=== PATIENT | female | born 1940 | race American Indian/Alaskan Native ===

== ENCOUNTER 2017-02-27 17:26 | Inpatient (IN) | payer MEDICARE, OTHER ==
[2017-02-27 17:37] VITALS: BMI 29.9
[2017-02-27] MEDS ORDERED: Iohexol 240 (50 ml) PO STA (18:36)
[2017-02-27] MEDS ORDERED: Sodium Chloride 0.9% 500 ML IV ONE ×2 (18:36→18:55)
[2017-02-27] MEDS ORDERED: Iohexol 240 (50 ml) ONE (18:55)
[2017-02-27 19:05] LABS: BASO # 0.1 K/uL (0.0-0.2); BASO % 0.6 % (0.0-2.0); EOS # 0.1 K/uL (0.0-0.7); EOS % 0.9 % (0.0-4.0); HEMOGLOBIN 10.8 g/dL (11.0-16.0); LYMPH # 2.8 K/uL (1.0-4.3); LYMPH % 17.9 % (20.0-40.0); MEAN CELL VOLUME 82.6 fL (81.0-99.0); MEAN CORPUSCULAR HEMOGLOBIN 26.1 pg (27.0-31.0); MEAN CORPUSCULAR HGB CONC 31.6 g/dL (33.0-37.0); MEAN PLATELET VOLUME 7.2 fL (7.2-11.7); MONO # 0.7 K/uL (0.0-0.8); MONO % 4.2 % (0.0-10.0); NEUT # 12.1 K/uL (1.8-7.0); NEUT % 76.4 % (50.0-75.0); RBC 4.15 Mil/uL (3.80-5.20); RED CELL DISTRIBUTION WIDTH 19.2 % (11.5-14.5); WHITE BLOOD COUNT 15.9 K/uL (4.8-10.8)
[2017-02-27 19:12] LABS: INR 1.2; PROTHROMBIN TIME 13.6 SECONDS (9.7-12.2)
[2017-02-27 19:17] LABS: ALBUMIN 3.8 g/dL (3.5-5.0)
[2017-02-27 19:19] LABS: GFR AFRICAN-AMERICAN > 60; GFR NON-AFRICAN AMERICAN > 60; SQUAMOUS EPITHIAL 13 /hpf (0-5); URINE BACTERIA RARE (<OCC); URINE BILIRUBIN NEGATIVE (NEGATIVE); URINE BLOOD NEGATIVE (NEGATIVE); URINE CLARITY Hazy (Clear); URINE COLOR Yellow (YELLOW); URINE GLUCOSE (UA) NORMAL (Normal); URINE NITRATE NEGATIVE (NEGATIVE); URINE PROTEIN NEGATIVE (NEGATIVE); URINE UROBILINOGEN NORMAL mg/dL (0.2-1.0)
[2017-02-27 19:20] LABS: ALT/SGPT 21 U/L (9-52); AST/SGOT 41 U/L (14-36); BLOOD UREA NITROGEN 16 mg/dL (7-17); CALCIUM 9.1 mg/dl (8.6-10.4); LIPASE 81 U/L (23-300)
[2017-02-27] MEDS ORDERED: Iodixanol 320 MG/ML 100 ML BOTTLE IV ONE (20:02)
[2017-02-27 20:04] LABS: URINE LEUKOCYTE ESTERASE 2+ Leu/uL (Negative)
--- NOTE | 2017-02-27 21:15 | CT ---
EXAM: CT Abdomen and Pelvis With Intravenous Contrast CLINICAL HISTORY: 76 years old, female; Pain; Abdominal pain; Flank; Left lower quadrant (llq); Additional info: Llq pain TECHNIQUE: Axial computed tomography images of the abdomen and pelvis with intravenous contrast. This CT exam was performed using one or more of the following dose reduction techniques: automated exposure control, adjustment of the mA and/or kV according to patient size, and/or use of iterative reconstruction technique. Coronal and sagittal reformatted images were created and reviewed. CONTRAST: 100 mL of OMNIPAQUE 350 administered intravenously. EXAM DATE/TIME: 02/27/2017 7:32 PM COMPARISON: There are no prior studies for comparison. FINDINGS: Lower thorax: Heart size is normal. There is a small hiatal hernia. There is reflux of oral contrast into the distal esophagus. There is minimal atelectasis and scarring at the lung bases ABDOMEN: Liver: There is fatty infiltration of the liver. There is a heterogeneously enhancing lesion in the dome of the liver on the right, approximately 2.3 x 2.2 cm.. Gallbladder and bile ducts: unremarkable Pancreas: unremarkable Spleen: unremarkable Adrenals: There is mild adrenal thickening bilaterally. Kidneys and ureters: There is a left renal cyst. There is minimal right renal scarring. Kidneys and ureters are otherwise unremarkable. Stomach and bowel: Stomach is incompletely distended. There is mild prominence of the antral and duodenal [place]. There is mild transverse duodenal and proximal jejunal wall and fold thickening. Duodenum and proximal jejunum are mildly dilated. Dilatation decreases distally. Small bowel is incompletely opacified with contrast. Terminal ileum is distended with fluid.Appendix is not visualized. There is no pericecal inflammation. There is moderate stool in the colon. There is sigmoid diverticulosis. There is a long segment sigmoid lesion with wall thickening and inflammation in the adjacent fat. Appendix: See stomach and bowel PELVIS: Bladder: Bladder is partially distended. Reproductive: Uterus is mildly prominent for patient's age. There are scattered uterine calcifications. Right adnexa is unremarkable. Left adnexa is difficult to evaluate. ABDOMEN and PELVIS: Intraperitoneal space: There is a small amount of fluid in the left colic gutter and pelvis. There is no free air. Bones/joints: There are degenerative changes in the osseus structures. Soft tissues: There is a small fat containing umbilical hernia. There is a cyst containing left paraumbilical ventral hernia. Vasculature: There are vascular calcifications. Lymph nodes: There is shotty para-aortic adenopathy. IMPRESSION: Diverticulosis with probable sigmoid diverticulitis, underlying neoplasm is difficult to exclude, followup advised; enteritis; possible hepatic hemangioma; possible fibroid uterus Additional findings as described above.
[2017-02-27] MEDS ORDERED: Vancomycin 125 MG/5 ML SOLN (ORAL/RECTAL) PO STA (22:29)
[2017-02-27] MEDS ORDERED: metroNIDAZOLE IV 500 mg/100 ml 500 MG/100 ML BAG IVPB STA (22:31)
--- NOTE | 2017-02-27 22:44 | C.PDOC ---
Time Seen by Provider: 02/27/17 18:23 Chief Complaint (Nursing): Abdominal Pain History Per: Patient Onset/Duration Of Symptoms: Days, Persistent Current Symptoms Are (Timing): Still Present Severity: Moderate Location Of Pain/Discomfort: LLQ Quality Of Discomfort: "Pain" Alleviating Factors: None Additional History Per: Prior Records Past Medical History Reviewed: Historical Data, Nursing Documentation, Vital Signs Vital Signs: Last Vital Signs Temp 98.8 F 02/27/17 21:05 Pulse 70 02/27/17 21:05 Resp 18 02/27/17 21:05 BP 129/68 02/27/17 21:05 Pulse Ox 97 02/27/17 21:05 - Medical History PMH: Arthritis, Colonic Polyps, Diverticulitis, HTN, Hypercholesterolemia Surgical History: Appendectomy Other Surgeries: Drainage of diverticulitis associated abscess Family History: States: Unknown Family Hx - Social History Hx Alcohol Use: No Hx Substance Use: No - Immunization History Hx Tetanus Toxoid Vaccination: No Hx Influenza Vaccination: No (Deferred to MD) Hx Pneumococcal Vaccination: No (Deferred to MD) Review Of Systems Except As Marked, All Systems Reviewed And Found Negative. Constitutional: Negative for: Fever Cardiovascular: Negative for: Chest Pain Respiratory: Negative for: Shortness of Breath Gastrointestinal: Positive for: Abdominal Pain. Negative for: Vomiting, Hematochezia Genitourinary: Negative for: Dysuria Musculoskeletal: Negative for: Neck Pain, Back Pain Skin: Negative for: Rash Neurological: Negative for: Weakness, Numbness, Seizures, Altered Mental Status Physical Exam - Physical Exam Appears: Non-toxic, No Acute Distress Skin: Normal Color, Warm, Dry, No Rash Head: Atraumatic, Normacephalic Eye(s): bilateral: PERRL, EOMI Neck: Normal ROM, Supple Cardiovascular: Rhythm Regular Respiratory: Normal Breath Sounds, No Accessory Muscle Use Gastrointestinal/Abdominal: Soft, Tenderness (LLQ) Back: No CVA Tenderness Extremity: Normal ROM Neurological/Psych: Oriented x3, Normal Motor, Normal Sensation ED Course And Treatment - Laboratory Results Result Diagrams: 02/27/17 18:58 02/27/17 18:58 Lab Interpretation: Abnormal Interpretation Of Abnormal: Leukocytosis O2 Sat by Pulse Oximetry: 97 Pulse Ox Interpretation: Normal - CT Scan/US CT abd/pelv Other Rad Studies (CT/US): Read By Radiologist, Radiology Report Reviewed CT/US Interpretation: IMPRESSION: Diverticulosis with probable sigmoid diverticulitis, underlying. neoplasm is difficult to exclude, followup advised ; enteritis; possible hepatic. hemangioma; possible fibroid uterus. . . Additional findings as described above. - Physician Consult Information Physician Contacted: Marion Lira (GI) Outcome Of Conversation: He wants pt admitted under Dr. Liang's service and receive PO Vancomycin and IV Flagyl. Progress - Interventions Interventions:: Observation, Intravenous fluid - Medications Administered Intravenous: Opiate - Data Reviewed Data Reviewed: Lab, Diagnostic imaging, Old records - Patient Status Patient status: Partially improved - Continuity of Care Discussed patient case with:: Patient, ED Nurse, PMD Discussed pt. case with clinical application consultant/specialty: Gastroenterology - Patient Plan Patient Plan: Admission Disposition Discussed With : Heraclio Liang Comment: He accepted pt on his service. Doctor Will See Patient In The: Hospital Counseled Patient/Family Regarding: Studies Performed, Diagnosis - Disposition Disposition: HOSPITALIZED Disposition Time: 22:45 Condition: FAIR - Clinical Impression Clinical Impression: Sigmoid diverticulitis
[2017-02-27] MEDS ORDERED: metroNIDAZOLE IV 500 mg/100 ml 500 MG/100 ML BAG ONE (22:59)
[2017-02-28] MEDS ORDERED: metroNIDAZOLE IV 500 mg/100 ml 500 MG/100 ML BAG ONE ×2 (06:05→14:10)
[2017-02-28] MEDS: metroNIDAZOLE IV 500 mg/100 ml 500 MG/100 ML BAG IVPB SCH ×3 (06:11→21:04)
[2017-02-28] MEDS ORDERED: Dextrose 5%/0.45% NS 1,000 ML IV ONE (09:30)
[2017-02-28] MEDS: Dextrose 5%/0.45% NS 1,000 ML IV SCH (09:31)
[2017-02-28] MEDS ORDERED: Enoxaparin 40 mg Syringe ONE (09:33)
[2017-02-28] MEDS ORDERED: cefTRIAXone IV 1 gm in Dextros 50 ML IVPB ONE (09:33)
[2017-02-28] MEDS: Enoxaparin 40 mg Syringe SC SCH (09:36)
--- NOTE | 2017-02-28 21:24 | CP.PCM.HP ---
History of Present Illness - History of Present Illness History of Present Illness: Cheif complain: LLQ abdominal pain HPI: Elderly AA female well known to me with H/O DM, HTN, Diverticulitis of colon, she was recently discharged from [facility], after few days of no complains, she developed acute LLQ pain, not associated with any urinary symptoms. Present on Admission - Present on Admission Any Indicators Present on Admission: Yes Review of Systems - Review of Systems Systems not reviewed;Unavailable: Acuity of Condition - Constitutional Constitutional: Fatigue, Lethargy, Malaise - EENT Eyes: absent: As Per HPI, Blind Spots, Blurred Vision, Change in Vision, Decreased Night Vision, Diplopia, Discharge, Dry Eye, Exophthalmos, Floaters, Irritation, Itchy Eyes, Loss of Peripheral Vision, Pain, Photophobia, Requires Corrective Lenses, Sees Flashes, Spots in Vision, Tunnel Vision, Other Visual Disturbances, Loss of Vision, Other Ears: absent: As Per HPI, Decreased Hearing, Ear Discharge, Ear Pain, Tinnitus, Abnormal Hearing, Disequilibrium, Dizziness, Other Nose/Mouth/Throat: absent: As Per HPI, Epistaxis, Nasal Congestion, Nasal Discharge, Nasal Obstruction, Nasal Trauma, Nose Pain, Post Nasal Drip, Sinus Pain, Sinus Pressure, Bleeding Gums, Change in Voice, Dental Pain, Dry Mouth, Dysphagia, Halitosis, Hoarsness, Lip Swelling, Mouth Lesions, Mouth Pain, Odynophagia, Sore Throat, Throat Swelling, Tongue Swelling, Facial Pain, Neck Pain, Neck Mass, Other - Cardiovascular Cardiovascular: absent: As Per HPI, Acrocyanosis, Chest Pain, Chest Pain at Rest , Chest Pain with Activity, Claudication, Diaphoresis, Dyspnea, Dyspnea on Exertion, Edema, Irregular Heart Rhythm, Pain Radiating to Arm/Neck/Jaw, Leg Edema, Leg Ulcers, Lightheadedness, Orthopnea, Palpitations, Paroxysmal Nocturnal Dyspnea, Pedal Edema, Radiating Pain, Rapid Heart Rate, Slow Heart Rate, Syncope, Other - Respiratory Respiratory: absent: As Per HPI, Cough, Dyspnea, Hemoptysis, Dyspnea on Exertion , Wheezing, Snoring, Stridor, Pain on Inspiration, Chest Congestion, Excessive Mucous Production, Change in Mucous Color, Pain with Coughing, Other - Gastrointestinal Gastrointestinal: Abdominal Pain. absent: As Per HPI, Belching, Bloating, Change in Bowel Habits, Change in Stool Character, Coffee Ground Emesis, Constipation, Cramping, Diarrhea, Dyspepsia, Dysphagia, Early Satiety, Excessive Flatus, Fecal Incontinence, Heartburn, Hematemesis, Hematochezia, Loose Stools, Melena, Nausea, Odynophagia, Temesmus, Vomiting, Other - Genitourinary Genitourinary: absent: As Per HPI, Change in Urinary Stream, Difficulty Urinating, Dysuria, Flank Pain, Hematuria, Pyuria, Nocturia, Urinary Incontinence, Urinary Frequency, Urinary Hesitance, Urinary Urgency, Voiding Freq/Small Amts, Freq UTI, Hx Renal/Bladder Calculi, Hx /Renal Surgery, Bladder Distension, Other Past Patient History - Past Medical History & Family History Past Medical History?: Yes - Past Social History Smoking Status: Never Smoked - CARDIAC Hx Hypercholesterolemia: Yes Hx Hypertension: Yes - PULMONARY Hx Respiratory Disorders: No - NEUROLOGICAL Hx Neurological Disorder: No - HEENT Hx HEENT Problems: No - RENAL Hx Chronic Kidney Disease: No - ENDOCRINE/METABOLIC Hx Endocrine Disorders: No - HEMATOLOGICAL/ONCOLOGICAL Hx Blood Disorders: No Hx Blood Transfusions: No - INTEGUMENTARY Hx Dermatological Problems: No - MUSCULOSKELETAL/RHEUMATOLOGICAL Hx Arthritis: Yes Hx Falls: No - GASTROINTESTINAL Hx Diverticulitis: Yes - GENITOURINARY/GYNECOLOGICAL Hx Genitourinary Disorders: No - PSYCHIATRIC Hx Substance Use: No - SURGICAL HISTORY Hx Appendectomy: Yes - ANESTHESIA Hx Anesthesia: Yes Hx Anesthesia Reactions: No Hx Malignant Hyperthermia: No Meds Allergies/Adverse Reactions: Allergies Allergy/AdvReac Type Severity Reaction Status Date / Time No Known Allergies Allergy Verified 02/27/17 17:34 Physical Exam - Constitutional Appears: No Acute Distress - Head Exam Head Exam: ATRAUMATIC, NORMAL INSPECTION, NORMOCEPHALIC - Eye Exam Eye Exam: EOMI, Normal appearance, PERRL Pupil Exam: NORMAL ACCOMODATION, PERRL - ENT Exam ENT Exam: Mucous Membranes Moist, Normal Exam - Respiratory Exam Respiratory Exam: Clear to Auscultation Bilateral, NORMAL BREATHING PATTERN - Cardiovascular Exam Cardiovascular Exam: REGULAR RHYTHM - GI/Abdominal Exam GI & Abdominal Exam: Normal Bowel Sounds, Tenderness Additional comments: LLQ - Neurological Exam Neurological exam: Alert, CN II-XII Intact, Normal Gait, Oriented x3, Reflexes Normal Results - Vital Signs Recent Vital Signs: Last Vital Signs Temp 98.2 F 02/28/17 18:08 Pulse 63 02/28/17 18:08 Resp 20 02/28/17 18:08 BP 157/80 H 02/28/17 18:08 Pulse Ox 97 02/28/17 18:08 - Labs Result Diagrams: 02/27/17 18:58 02/27/17 18:58 Labs: Laboratory Results - last 24 hr 02/28/17 11:31 Carcinoembryonic Ag 3.3 H CA 19-9 Antigen < 1.4 CA 125 Antigen 7.1 Assessment & Plan (1) UTI (urinary tract infection) Status: Acute (2) Sigmoid diverticulitis Status: Acute
[2017-03-01] MEDS: metroNIDAZOLE IV 500 mg/100 ml 500 MG/100 ML BAG IVPB SCH ×3 (05:00→21:00)
[2017-03-01] MEDS: Dextrose 5%/0.45% NS 1,000 ML IV SCH (05:30)
[2017-03-01] MEDS: Enoxaparin 40 mg Syringe SC SCH (09:57)
--- NOTE | 2017-03-01 10:14 | CP.PCM.PN ---
Subjective - Date & Time of Evaluation Date of Evaluation: 03/01/17 Time of Evaluation: 08:05 - Subjective Subjective: Pt is seen and evalauted, still c/o LLQ pain, afebrile, no nausea/vomittitng Objective - Vital Signs/Intake and Output Vital Signs (last 24 hours): Temp Pulse Resp BP Pulse Ox 97.4 F L 60 20 137/69 95 03/01/17 08:00 03/01/17 08:00 03/01/17 08:00 03/01/17 08:00 03/01/17 08:00 Intake and Output: 03/01/17 03/01/17 06:59 18:59 Intake Total 400 Balance 400 - Medications Medications: Current Medications Enoxaparin Sodium (Lovenox) 40 mg SC DAILY [facility] Last Admin: 03/01/17 09:57 Dose: 40 mg Metronidazole (Flagyl) 500 mg in 100 mls @ 100 mls/hr IVPB Q8 [facility] Last Admin: 03/01/17 05:00 Dose: 100 mls/hr Ceftriaxone Sodium 1 gm/ (Sodium Chloride) 100 mls @ 100 mls/hr IVPB DAILY [facility] Last Admin: 02/28/17 09:36 Dose: 100 mls/hr Dextrose/Sodium Chloride (Dextrose 5%/0.45% Ns 1000 Ml) 1,000 mls @ 50 mls/hr IV .Q20H [facility] Last Admin: 03/01/17 05:30 Dose: 50 mls/hr Famotidine 40 mg/ Sodium (Chloride) 104 mls @ 208 mls/hr IVPB DAILY [facility] Last Admin: 03/01/17 09:57 Dose: 208 mls/hr Morphine Sulfate (Morphine) 2 mg IVP Q4 PRN PRN Reason: Pain, moderate (4-7) Last Admin: 03/01/17 07:14 Dose: 2 mg Ondansetron HCl (Zofran Inj) 4 mg IVP Q4 PRN PRN Reason: Nausea/Vomiting Last Admin: 02/28/17 09:45 Dose: 4 mg Rosuvastatin Calcium (Crestor) 5 mg PO DIN [facility] - Labs Labs: PT 13.6 SECONDS (9.7-12.2) H 02/27/17 18:58 INR 1.2 02/27/17 18:58 APTT 30 SECONDS (21-34) 02/27/17 18:58 - Constitutional Appears: No Acute Distress - Head Exam Head Exam: ATRAUMATIC, NORMAL INSPECTION, NORMOCEPHALIC - Eye Exam Eye Exam: EOMI, Normal appearance, PERRL Pupil Exam: NORMAL ACCOMODATION, PERRL - Respiratory Exam Respiratory Exam: Clear to Ausculation Bilateral, NORMAL BREATHING PATTERN - Cardiovascular Exam Cardiovascular Exam: REGULAR RHYTHM, +S1, +S2. absent: Murmur - GI/Abdominal Exam GI & Abdominal Exam: Tenderness, Normal Bowel Sounds. absent: Bruit, Distended , Firm, Guarding, Rigid, Soft, Diminished Bowel Sounds, Hernia, Hyperactive Bowel Sounds, Hypoactive Bowel Sounds, Organomegaly, Pulsatile Mass, Rebound, Mass Additional comments: LLQ tenderness Assessment and Plan (1) UTI (urinary tract infection) Status: Acute (2) Sigmoid diverticulitis Status: Acute
[2017-03-01 12:08] LABS: BASO # 0.1 K/uL (0.0-0.2); BASO % 0.8 % (0.0-2.0); EOS # 0.2 K/uL (0.0-0.7); EOS % 3.2 % (0.0-4.0); HEMOGLOBIN 10.1 g/dL (11.0-16.0); LYMPH # 2.6 K/uL (1.0-4.3); LYMPH % 42.5 % (20.0-40.0); MEAN CELL VOLUME 83.2 fL (81.0-99.0); MEAN CORPUSCULAR HGB CONC 32.5 g/dL (33.0-37.0); MEAN PLATELET VOLUME 7.4 fL (7.2-11.7); MONO # 0.4 K/uL (0.0-0.8); MONO % 6.7 % (0.0-10.0); NEUT # 2.9 K/uL (1.8-7.0); NEUT % 46.8 % (50.0-75.0); RBC 3.74 Mil/uL (3.80-5.20); RED CELL DISTRIBUTION WIDTH 18.5 % (11.5-14.5)
[2017-03-01 12:13] LABS: WHITE BLOOD COUNT 6.2 K/uL (4.8-10.8)
[2017-03-01 12:15] LABS: INR 1.2
[2017-03-01 12:37] LABS: ALBUMIN 3.3 g/dL (3.5-5.0)
[2017-03-01 12:40] LABS: AST/SGOT 30 U/L (14-36); GFR AFRICAN-AMERICAN > 60; GFR NON-AFRICAN AMERICAN > 60
[2017-03-01 12:41] LABS: ALB/GLOB RATIO 0.9 (1.0-2.1); ALT/SGPT 21 U/L (9-52); BLOOD UREA NITROGEN 7 mg/dL (7-17); CALCIUM 8.8 mg/dl (8.6-10.4)
[2017-03-01] MEDS: Potassium Chloride 20 mEq ER Tab PO SCH (14:22)
[2017-03-02] MEDS: Dextrose 5%/0.45% NS 1,000 ML IV SCH ×3 (01:22→21:31)
--- NOTE | 2017-03-02 02:25 | CP.PCM.PN ---
Subjective - Date & Time of Evaluation Date of Evaluation: 03/02/17 Time of Evaluation: 21:00 - Subjective Subjective: LESS ABDOMINAL PAIN, NO NAUSEA, ON DIET Objective - Vital Signs/Intake and Output Vital Signs (last 24 hours): Temp Pulse Resp BP Pulse Ox 98.2 F 57 L 20 135/68 96 03/01/17 23:05 03/01/17 23:05 03/01/17 23:05 03/01/17 23:05 03/01/17 23:05 Intake and Output: 03/01/17 03/02/17 18:59 06:59 Intake Total 1130 Balance 1130 - Medications Medications: Current Medications Enoxaparin Sodium (Lovenox) 40 mg SC DAILY [facility] Last Admin: 03/01/17 09:57 Dose: 40 mg Metronidazole (Flagyl) 500 mg in 100 mls @ 100 mls/hr IVPB Q8 [facility] Last Admin: 03/01/17 21:00 Dose: 100 mls/hr Ceftriaxone Sodium 1 gm/ (Sodium Chloride) 100 mls @ 100 mls/hr IVPB DAILY [facility] Last Admin: 03/01/17 11:00 Dose: 100 mls/hr Dextrose/Sodium Chloride (Dextrose 5%/0.45% Ns 1000 Ml) 1,000 mls @ 50 mls/hr IV .Q20H [facility] Last Admin: 03/02/17 01:22 Dose: Not Given Famotidine 40 mg/ Sodium (Chloride) 104 mls @ 208 mls/hr IVPB DAILY [facility] Last Admin: 03/01/17 09:57 Dose: 208 mls/hr Morphine Sulfate (Morphine) 2 mg IVP Q4 PRN PRN Reason: Pain, moderate (4-7) Last Admin: 03/01/17 20:58 Dose: 2 mg Ondansetron HCl (Zofran Inj) 4 mg IVP Q4 PRN PRN Reason: Nausea/Vomiting Last Admin: 02/28/17 09:45 Dose: 4 mg Potassium Chloride (K-Dur 20 Meq Er Tab) 40 meq PO DAILY [facility] Stop: 03/03/17 13:46 Last Admin: 03/01/17 14:22 Dose: 40 meq Rosuvastatin Calcium (Crestor) 5 mg PO DIN [facility] - Labs Labs: 03/01/17 11:55 03/01/17 11:55 PT 14.0 SECONDS (9.7-12.2) H 03/01/17 11:55 INR 1.2 03/01/17 11:55 APTT 34 SECONDS (21-34) 03/01/17 11:55 Assessment and Plan (1) UTI (urinary tract infection) Status: Resolved (2) Sigmoid diverticulitis Status: Ruled-out
[2017-03-02] MEDS: metroNIDAZOLE IV 500 mg/100 ml 500 MG/100 ML BAG IVPB SCH ×3 (05:55→21:29)
[2017-03-02 08:18] LABS: BLOOD UREA NITROGEN 6 mg/dL (7-17); GFR AFRICAN-AMERICAN > 60; GFR NON-AFRICAN AMERICAN > 60
[2017-03-02 08:19] LABS: CALCIUM 8.9 mg/dl (8.6-10.4)
[2017-03-02] MEDS: Potassium Chloride 20 mEq ER Tab PO SCH (10:24)
[2017-03-02] MEDS: Enoxaparin 40 mg Syringe SC SCH (10:25)
[2017-03-03] MEDS: metroNIDAZOLE IV 500 mg/100 ml 500 MG/100 ML BAG IVPB SCH ×3 (05:37→21:45)
[2017-03-03] MEDS: Dextrose 5%/0.45% NS 1,000 ML IV SCH (05:39)
[2017-03-03] MEDS: Enoxaparin 40 mg Syringe SC SCH (11:05)
[2017-03-03] MEDS: Potassium Chloride 20 mEq ER Tab PO SCH (11:05)
--- NOTE | 2017-03-03 21:51 | CP.PCM.PN ---
Subjective - Date & Time of Evaluation Date of Evaluation: 03/03/17 Time of Evaluation: 13:00 - Subjective Subjective: FEELS LLQ PAIN, NUASEA, NO FEVER, SHE HAS NO CHEST PAIN, SEEN BY GI, ON IV ANTIBIOTICS Objective - Vital Signs/Intake and Output Vital Signs (last 24 hours): Temp Pulse Resp BP Pulse Ox 99.2 F 60 20 157/77 H 98 03/03/17 08:23 03/03/17 08:23 03/03/17 08:23 03/03/17 08:23 03/03/17 08:23 Intake and Output: 03/03/17 03/04/17 18:59 06:59 Intake Total 780 Balance 780 - Medications Medications: Current Medications Enoxaparin Sodium (Lovenox) 40 mg SC DAILY [facility] Last Admin: 03/03/17 11:05 Dose: 40 mg Metronidazole (Flagyl) 500 mg in 100 mls @ 100 mls/hr IVPB Q8 [facility] Last Admin: 03/03/17 21:45 Dose: 100 mls/hr Ceftriaxone Sodium 1 gm/ (Sodium Chloride) 100 mls @ 100 mls/hr IVPB DAILY [facility] Last Admin: 03/03/17 11:04 Dose: 100 mls/hr Famotidine 40 mg/ Sodium (Chloride) 104 mls @ 208 mls/hr IVPB DAILY [facility] Last Admin: 03/03/17 11:03 Dose: 208 mls/hr Morphine Sulfate (Morphine) 2 mg IVP Q4 PRN PRN Reason: Pain, moderate (4-7) Last Admin: 03/02/17 22:27 Dose: 2 mg Ondansetron HCl (Zofran Inj) 4 mg IVP Q4 PRN PRN Reason: Nausea/Vomiting Last Admin: 03/02/17 10:29 Dose: 4 mg Rosuvastatin Calcium (Crestor) 5 mg PO DIN [facility] - Labs Labs: 03/01/17 11:55 03/02/17 07:54 PT 14.0 SECONDS (9.7-12.2) H 03/01/17 11:55 INR 1.2 03/01/17 11:55 APTT 34 SECONDS (21-34) 03/01/17 11:55 - Constitutional Appears: Non-toxic, No Acute Distress - Head Exam Head Exam: ATRAUMATIC, NORMAL INSPECTION, NORMOCEPHALIC - Eye Exam Eye Exam: Normal appearance Pupil Exam: NORMAL ACCOMODATION - ENT Exam ENT Exam: Mucous Membranes Moist, Normal Exam - Neck Exam Neck Exam: Normal Inspection - Respiratory Exam Respiratory Exam: Clear to Ausculation Bilateral - Cardiovascular Exam Cardiovascular Exam: REGULAR RHYTHM, +S1, +S2 - GI/Abdominal Exam GI & Abdominal Exam: Soft, Tenderness (LLQ) - Rectal Exam Rectal Exam: NORMAL INSPECTION - Exam Exam: NORMAL INSPECTION Assessment and Plan (1) UTI (urinary tract infection) Status: Acute (2) Sigmoid diverticulitis Assessment & Plan: SHE IS IN PAIN, TO CONTINUE ANTIBIOTICS IVF AND DIET PER GI DR BARGER Status: Acute (3) Hypertension Status: Chronic (4) Dehydration Assessment & Plan: IVF, MONITOR LABS Status: Acute
[2017-03-04] MEDS: metroNIDAZOLE IV 500 mg/100 ml 500 MG/100 ML BAG IVPB SCH ×3 (05:19→21:33)
[2017-03-04] MEDS: Enoxaparin 40 mg Syringe SC SCH (10:02)
[2017-03-04] MEDS: Dextrose 5%/0.45% NS 1,000 ML IV SCH (21:34)
--- NOTE | 2017-03-04 23:33 | CP.PCM.PN ---
Subjective - Date & Time of Evaluation Date of Evaluation: 03/04/17 Time of Evaluation: 20:40 - Subjective Subjective: LESS ABDOMINAL PAIN, NO NAUSEA, ON DIET Objective - Vital Signs/Intake and Output Vital Signs (last 24 hours): Temp Pulse Resp BP Pulse Ox 98.3 F 58 L 20 152/80 H 99 03/04/17 16:00 03/04/17 16:00 03/04/17 16:00 03/04/17 16:00 03/04/17 16:00 Intake and Output: 03/04/17 03/05/17 18:59 06:59 Intake Total 750 Balance 750 - Medications Medications: Current Medications Enoxaparin Sodium (Lovenox) 40 mg SC DAILY [facility] Last Admin: 03/04/17 10:02 Dose: 40 mg Metronidazole (Flagyl) 500 mg in 100 mls @ 100 mls/hr IVPB Q8 [facility] Last Admin: 03/04/17 21:33 Dose: 100 mls/hr Ceftriaxone Sodium 1 gm/ (Sodium Chloride) 100 mls @ 100 mls/hr IVPB DAILY [facility] Last Admin: 03/04/17 10:04 Dose: 100 mls/hr Famotidine 40 mg/ Sodium (Chloride) 104 mls @ 208 mls/hr IVPB DAILY [facility] Last Admin: 03/04/17 10:02 Dose: 208 mls/hr Dextrose/Sodium Chloride (Dextrose 5%/0.45% Ns 1000 Ml) 1,000 mls @ 50 mls/hr IV .Q20H [facility] Last Admin: 03/04/17 21:34 Dose: 50 mls/hr Morphine Sulfate (Morphine) 2 mg IVP Q4 PRN PRN Reason: Pain, Mild (1-3) Last Admin: 03/04/17 09:59 Dose: 2 mg Ondansetron HCl (Zofran Inj) 4 mg IVP Q4 PRN PRN Reason: Nausea/Vomiting Last Admin: 03/02/17 10:29 Dose: 4 mg Rosuvastatin Calcium (Crestor) 5 mg PO DIN [facility] - Labs Labs: 03/01/17 11:55 03/02/17 07:54 PT 14.0 SECONDS (9.7-12.2) H 03/01/17 11:55 INR 1.2 03/01/17 11:55 APTT 34 SECONDS (21-34) 03/01/17 11:55 - Constitutional Appears: No Acute Distress - Head Exam Head Exam: ATRAUMATIC, NORMAL INSPECTION, NORMOCEPHALIC - Eye Exam Eye Exam: EOMI, Normal appearance, PERRL Pupil Exam: NORMAL ACCOMODATION, PERRL - ENT Exam ENT Exam: Mucous Membranes Moist, Normal Exam - Neck Exam Neck Exam: Full ROM, Normal Inspection. absent: Lymphadenopathy - Respiratory Exam Respiratory Exam: Clear to Ausculation Bilateral, NORMAL BREATHING PATTERN - Cardiovascular Exam Cardiovascular Exam: REGULAR RHYTHM, +S1, +S2. absent: Murmur - GI/Abdominal Exam GI & Abdominal Exam: Soft, Normal Bowel Sounds. absent: Tenderness Assessment and Plan (1) UTI (urinary tract infection) Status: Resolved (2) Sigmoid diverticulitis Status: Ruled-out (3) Hypertension Status: Chronic (4) Dehydration Status: Acute
[2017-03-05] MEDS: metroNIDAZOLE IV 500 mg/100 ml 500 MG/100 ML BAG IVPB SCH ×3 (05:26→21:16)
[2017-03-05] MEDS: Dextrose 5%/0.45% NS 1,000 ML IV SCH ×2 (05:30→14:24)
[2017-03-05] MEDS: Enoxaparin 40 mg Syringe SC SCH (09:19)
--- NOTE | 2017-03-05 23:35 | CP.PCM.PN ---
Subjective - Date & Time of Evaluation Date of Evaluation: 03/05/17 Time of Evaluation: 09:45 - Subjective Subjective: LESS ABDOMINAL PAIN, NO NAUSEA, ON DIET Objective - Vital Signs/Intake and Output Vital Signs (last 24 hours): Temp Pulse Resp BP Pulse Ox 98.2 F 61 20 157/70 H 96 03/05/17 16:00 03/05/17 16:00 03/05/17 16:00 03/05/17 16:00 03/05/17 16:00 Intake and Output: 03/05/17 03/06/17 18:59 06:59 Intake Total 1050 750 Balance 1050 750 - Medications Medications: Current Medications Enoxaparin Sodium (Lovenox) 40 mg SC DAILY [facility] Last Admin: 03/05/17 09:19 Dose: 40 mg Famotidine 40 mg/ Sodium (Chloride) 104 mls @ 208 mls/hr IVPB DAILY [facility] Last Admin: 03/05/17 10:10 Dose: 208 mls/hr Dextrose/Sodium Chloride (Dextrose 5%/0.45% Ns 1000 Ml) 1,000 mls @ 50 mls/hr IV .Q20H [facility] Last Admin: 03/05/17 14:24 Dose: 50 mls/hr Metronidazole (Flagyl) 500 mg in 100 mls @ 100 mls/hr IVPB Q8 [facility] Last Admin: 03/05/17 21:16 Dose: 100 mls/hr Lisinopril (Zestril) 20 mg PO DAILY [facility] Last Admin: 03/05/17 12:54 Dose: 20 mg Morphine Sulfate (Morphine) 2 mg IVP Q4 PRN PRN Reason: Pain, Mild (1-3) Last Admin: 03/04/17 09:59 Dose: 2 mg Ondansetron HCl (Zofran Inj) 4 mg IVP Q4 PRN PRN Reason: Nausea/Vomiting Last Admin: 03/02/17 10:29 Dose: 4 mg Rosuvastatin Calcium (Crestor) 5 mg PO HS [facility] Last Admin: 03/05/17 21:21 Dose: 5 mg - Labs Labs: 03/01/17 11:55 03/02/17 07:54 PT 14.0 SECONDS (9.7-12.2) H 03/01/17 11:55 INR 1.2 03/01/17 11:55 APTT 34 SECONDS (21-34) 03/01/17 11:55 - Constitutional Appears: Non-toxic, No Acute Distress - Eye Exam Eye Exam: EOMI, Normal appearance Pupil Exam: NORMAL ACCOMODATION - ENT Exam ENT Exam: Mucous Membranes Moist, Normal Exam, Normal Oropharynx, TM's Normal Bilaterally - Neck Exam Neck Exam: Normal Inspection - Respiratory Exam Respiratory Exam: Clear to Ausculation Bilateral - Cardiovascular Exam Cardiovascular Exam: REGULAR RHYTHM, +S1, +S2 - GI/Abdominal Exam GI & Abdominal Exam: Soft, Tenderness, Normal Bowel Sounds - Rectal Exam Rectal Exam: NORMAL INSPECTION Assessment and Plan (1) UTI (urinary tract infection) Status: Resolved (2) Sigmoid diverticulitis Assessment & Plan: CONTINUE ANTIBIOTICS Status: Ruled-out (3) Hypertension Status: Chronic (4) Dehydration Status: Acute
[2017-03-06] MEDS: metroNIDAZOLE IV 500 mg/100 ml 500 MG/100 ML BAG IVPB SCH ×3 (05:13→21:18)
[2017-03-06] MEDS: Dextrose 5%/0.45% NS 1,000 ML IV SCH (05:13)
[2017-03-06 08:18] LABS: BASO # 0.1 K/uL (0.0-0.2); BASO % 1.1 % (0.0-2.0); EOS # 0.2 K/uL (0.0-0.7); HEMOGLOBIN 10.3 g/dL (11.0-16.0); LYMPH # 3.8 K/uL (1.0-4.3); LYMPH % 51.3 % (20.0-40.0); MEAN CELL VOLUME 82.8 fL (81.0-99.0); MEAN CORPUSCULAR HEMOGLOBIN 26.9 pg (27.0-31.0); MEAN CORPUSCULAR HGB CONC 32.5 g/dL (33.0-37.0); MEAN PLATELET VOLUME 7.2 fL (7.2-11.7); MONO # 0.4 K/uL (0.0-0.8); MONO % 5.1 % (0.0-10.0); NEUT # 2.9 K/uL (1.8-7.0); NEUT % 39.5 % (50.0-75.0); RBC 3.84 Mil/uL (3.80-5.20); RED CELL DISTRIBUTION WIDTH 19.5 % (11.5-14.5); WHITE BLOOD COUNT 7.5 K/uL (4.8-10.8)
[2017-03-06 10:09] LABS: GFR AFRICAN-AMERICAN > 60; GFR NON-AFRICAN AMERICAN > 60
[2017-03-06 10:10] LABS: BLOOD UREA NITROGEN 9 mg/dL (7-17); CALCIUM 8.7 mg/dl (8.6-10.4)
[2017-03-06] MEDS: Enoxaparin 40 mg Syringe SC SCH (10:48)
[2017-03-06] MEDS ORDERED: Potassium Chloride 20 mEq ER Tab PO ONE (17:28)
--- NOTE | 2017-03-06 19:53 | CP.PCM.PN ---
Subjective - Date & Time of Evaluation Date of Evaluation: 03/06/17 Time of Evaluation: 22:00 - Subjective Subjective: pt c/o pain IN LLQ ,SEEN BY DR BARGER, NO FEVER, NO SOB, NO COUGH, NO CHEST PAIN Objective - Vital Signs/Intake and Output Vital Signs (last 24 hours): Temp Pulse Resp BP Pulse Ox 98.3 F 60 20 162/76 H 98 03/06/17 16:00 03/06/17 16:00 03/06/17 16:00 03/06/17 16:00 03/06/17 16:00 Intake and Output: 03/06/17 03/07/17 18:59 06:59 Intake Total 750 Balance 750 - Medications Medications: Current Medications Enoxaparin Sodium (Lovenox) 40 mg SC DAILY [facility] Last Admin: 03/06/17 10:48 Dose: 40 mg Famotidine 40 mg/ Sodium (Chloride) 104 mls @ 208 mls/hr IVPB DAILY [facility] Last Admin: 03/06/17 10:48 Dose: 208 mls/hr Metronidazole (Flagyl) 500 mg in 100 mls @ 100 mls/hr IVPB Q8 [facility] Last Admin: 03/06/17 13:33 Dose: 100 mls/hr Lisinopril (Zestril) 20 mg PO DAILY [facility] Last Admin: 03/06/17 10:49 Dose: 20 mg Morphine Sulfate (Morphine) 2 mg IVP Q4 PRN PRN Reason: Pain, Mild (1-3) Last Admin: 03/04/17 09:59 Dose: 2 mg Ondansetron HCl (Zofran Inj) 4 mg IVP Q4 PRN PRN Reason: Nausea/Vomiting Last Admin: 03/02/17 10:29 Dose: 4 mg Rosuvastatin Calcium (Crestor) 5 mg PO HS [facility] Last Admin: 03/05/17 21:21 Dose: 5 mg - Labs Labs: 03/06/17 08:13 03/06/17 08:13 PT 14.0 SECONDS (9.7-12.2) H 03/01/17 11:55 INR 1.2 03/01/17 11:55 APTT 34 SECONDS (21-34) 03/01/17 11:55 - Constitutional Appears: Non-toxic, No Acute Distress, Chronically Ill - Head Exam Head Exam: NORMAL INSPECTION, NORMOCEPHALIC - Eye Exam Eye Exam: EOMI, Normal appearance - Cardiovascular Exam Cardiovascular Exam: REGULAR RHYTHM, +S1, +S2 - GI/Abdominal Exam GI & Abdominal Exam: Normal Bowel Sounds - Exam Exam: NORMAL INSPECTION - Neurological Exam Neurological Exam: Awake, CN II-XII Intact, Normal Gait, Oriented x3 Neuro motor strength exam: Left Upper Extremity: 5, Right Upper Extremity: 5, Left Lower Extremity: 5, Right Lower Extremity: 5 - Skin Skin Exam: Dry Assessment and Plan (1) UTI (urinary tract infection) Status: Resolved (2) Sigmoid diverticulitis Assessment & Plan: ON ANTIBIOITCS AND SHE IS ON DIET Status: Ruled-out (3) Hypertension Status: Chronic (4) Dehydration Status: Acute
[2017-03-06 22:59] LABS: SQUAMOUS EPITHIAL 5 /hpf (0-5); URINE BACTERIA RARE (<OCC); URINE BILIRUBIN NEGATIVE (NEGATIVE); URINE BLOOD NEGATIVE (NEGATIVE); URINE CLARITY Clear (Clear); URINE COLOR Yellow (YELLOW); URINE GLUCOSE (UA) NORMAL (Normal); URINE LEUKOCYTE ESTERASE NEGATIVE Leu/uL (Negative); URINE NITRATE NEGATIVE (NEGATIVE); URINE PROTEIN NEGATIVE (NEGATIVE); URINE UROBILINOGEN NORMAL mg/dL (0.2-1.0)
[2017-03-07] MEDS: metroNIDAZOLE IV 500 mg/100 ml 500 MG/100 ML BAG IVPB SCH ×3 (05:35→21:18)
[2017-03-07] MEDS: Enoxaparin 40 mg Syringe SC SCH (11:22)
[2017-03-07 17:23] VITALS: O2SAT 99
--- NOTE | 2017-03-07 22:31 | CP.PCM.PN ---
Subjective - Date & Time of Evaluation Date of Evaluation: 03/07/17 Time of Evaluation: 20:00 - Subjective Subjective: Alert, awake, no abdominal pain, nausea or vomiting, NAD. Objective - Vital Signs/Intake and Output Vital Signs (last 24 hours): Temp Pulse Resp BP Pulse Ox 98.5 F 62 20 157/81 H 99 03/07/17 16:00 03/07/17 16:00 03/07/17 16:00 03/07/17 16:00 03/07/17 16:00 Intake and Output: 03/07/17 03/08/17 18:59 06:59 Intake Total 340 340 Balance 340 340 - Medications Medications: Current Medications Enoxaparin Sodium (Lovenox) 40 mg SC DAILY [facility] Famotidine 40 mg/ Sodium (Chloride) 104 mls @ 208 mls/hr IVPB DAILY [facility] Last Admin: 03/07/17 11:12 Dose: 208 mls/hr Metronidazole (Flagyl) 500 mg in 100 mls @ 100 mls/hr IVPB Q8 [facility] Last Admin: 03/07/17 21:18 Dose: 100 mls/hr Lisinopril (Zestril) 20 mg PO DAILY [facility] Last Admin: 03/07/17 11:12 Dose: 20 mg Morphine Sulfate (Morphine) 2 mg IVP Q4 PRN PRN Reason: Pain, Mild (1-3) Last Admin: 03/04/17 09:59 Dose: 2 mg Ondansetron HCl (Zofran Inj) 4 mg IVP Q4 PRN PRN Reason: Nausea/Vomiting Last Admin: 03/02/17 10:29 Dose: 4 mg Rosuvastatin Calcium (Crestor) 5 mg PO [facility] Last Admin: 03/07/17 21:18 Dose: 5 mg - Labs Labs: 03/06/17 08:13 03/06/17 08:13 PT 14.0 SECONDS (9.7-12.2) H 03/01/17 11:55 INR 1.2 03/01/17 11:55 APTT 34 SECONDS (21-34) 03/01/17 11:55 - Constitutional Appears: No Acute Distress - Head Exam Head Exam: ATRAUMATIC, NORMAL INSPECTION, NORMOCEPHALIC - Eye Exam Eye Exam: EOMI, Normal appearance, PERRL Pupil Exam: NORMAL ACCOMODATION, PERRL - ENT Exam ENT Exam: Mucous Membranes Moist, Normal Exam - Respiratory Exam Respiratory Exam: Clear to Ausculation Bilateral, NORMAL BREATHING PATTERN - Cardiovascular Exam Cardiovascular Exam: REGULAR RHYTHM, +S1, +S2. absent: Murmur - GI/Abdominal Exam GI & Abdominal Exam: Soft, Normal Bowel Sounds. absent: Tenderness - Rectal Exam Rectal Exam: Deferred Assessment and Plan (1) UTI (urinary tract infection) Status: Resolved (2) Sigmoid diverticulitis Status: Ruled-out
[2017-03-08 00:19] VITALS: BP 111/66; PULSE 71; RESP 18; TEMP 97.7
[2017-03-08] MEDS: metroNIDAZOLE IV 500 mg/100 ml 500 MG/100 ML BAG IVPB SCH ×2 (06:03→13:27)
[2017-03-08] MEDS ORDERED: Enoxaparin 40 mg Syringe SC SCH (10:00)
--- NOTE | 2017-03-08 12:11 | CP.PCM.PN ---
Subjective - Date & Time of Evaluation Date of Evaluation: 03/08/17 Time of Evaluation: 12:11 - Subjective Subjective: Alert, awake, no abdominal pain, nausea or vomiting, NAD. Objective - Vital Signs/Intake and Output Vital Signs (last 24 hours): Temp Pulse Resp BP Pulse Ox 97.7 F 71 18 111/66 99 03/08/17 00:18 03/08/17 00:18 03/08/17 00:18 03/08/17 00:18 03/08/17 00:18 Intake and Output: 03/08/17 03/08/17 06:59 18:59 Intake Total 640 Balance 640 - Medications Medications: Current Medications Enoxaparin Sodium (Lovenox) 40 mg SC DAILY [facility] Last Admin: 03/08/17 09:22 Dose: 40 mg Famotidine 40 mg/ Sodium (Chloride) 104 mls @ 208 mls/hr IVPB DAILY [facility] Last Admin: 03/08/17 09:22 Dose: 208 mls/hr Metronidazole (Flagyl) 500 mg in 100 mls @ 100 mls/hr IVPB Q8 [facility] Last Admin: 03/08/17 06:03 Dose: 100 mls/hr Lisinopril (Zestril) 20 mg PO DAILY [facility] Last Admin: 03/08/17 09:22 Dose: 20 mg Ondansetron HCl (Zofran Inj) 4 mg IVP Q4 PRN PRN Reason: Nausea/Vomiting Last Admin: 03/02/17 10:29 Dose: 4 mg Potassium Chloride (K-Dur 20 Meq Er Tab) 40 meq PO ONCE ONE Stop: 03/08/17 14:01 Rosuvastatin Calcium (Crestor) 5 mg PO [facility] Last Admin: 03/07/17 21:18 Dose: 5 mg - Labs Labs: 03/06/17 08:13 03/06/17 08:13 PT 14.0 SECONDS (9.7-12.2) H 03/01/17 11:55 INR 1.2 03/01/17 11:55 APTT 34 SECONDS (21-34) 03/01/17 11:55 Assessment and Plan - Assessment and Plan (Free Text) Assessment: Patient admitted with abdominal pain, diverticulitis, alert and orientedx3, denies any distress, tolerating diet, no vomiting. D/W DR Liang and DR Lira, plan to discharge home today on flagyl 500mg po q8h x5 days. Advised to follow up with PMD in 1 week.
[2017-03-08] MEDS ORDERED: Potassium Chloride 20 mEq ER Tab PO ONE (14:00)
--- NOTE | 2017-03-08 14:30 | CP.PCM.DIS ---
Provider - Provider Date of Admission: 02/27/17 22:46 Attending physician: Heraclio Liang MD Time Spent in preparation of Discharge (in minutes): 55 Diagnosis - Discharge Diagnosis (1) UTI (urinary tract infection) Status: Resolved (2) Sigmoid diverticulitis Status: Ruled-out Hospital Course - Lab Results Lab Results: Most Recent Lab Values WBC 7.5 K/uL (4.8-10.8) 03/06/17 08:13 RBC 3.84 Mil/uL (3.80-5.20) 03/06/17 08:13 Hgb 10.3 g/dL (11.0-16.0) L 03/06/17 08:13 Hct 31.8 % (34.0-47.0) L 03/06/17 08:13 MCV 82.8 fL (81.0-99.0) 03/06/17 08:13 MCH 26.9 pg (27.0-31.0) L 03/06/17 08:13 MCHC 32.5 g/dL (33.0-37.0) L 03/06/17 08:13 RDW 19.5 % (11.5-14.5) H 03/06/17 08:13 Plt Count 322 K/uL (130-400) 03/06/17 08:13 MPV 7.2 fL (7.2-11.7) 03/06/17 08:13 Neut % (Auto) 39.5 % (50.0-75.0) L 03/06/17 08:13 Lymph % (Auto) 51.3 % (20.0-40.0) H 03/06/17 08:13 [place] % (Auto) 5.1 % (0.0-10.0) 03/06/17 08:13 Eos % (Auto) 3.0 % (0.0-4.0) 03/06/17 08:13 Baso % (Auto) 1.1 % (0.0-2.0) 03/06/17 08:13 Neut # 2.9 K/uL (1.8-7.0) 03/06/17 08:13 Lymph # 3.8 K/uL (1.0-4.3) 03/06/17 08:13 [place] # 0.4 K/uL (0.0-0.8) 03/06/17 08:13 Eos # 0.2 K/uL (0.0-0.7) 03/06/17 08:13 Baso # 0.1 K/uL (0.0-0.2) 03/06/17 08:13 PT 14.0 SECONDS (9.7-12.2) H 03/01/17 11:55 INR 1.2 03/01/17 11:55 APTT 34 SECONDS (21-34) 03/01/17 11:55 Sodium 138 mmol/L (132-148) 03/06/17 08:13 Potassium 3.5 mmol/L (3.6-5.2) L 03/06/17 08:13 Chloride 103 mmol/L (98-107) 03/06/17 08:13 Carbon Dioxide 24 mmol/L (22-30) 03/06/17 08:13 Anion Gap 15 (10-20) 03/06/17 08:13 BUN 9 mg/dL (7-17) 03/06/17 08:13 Creatinine 0.8 MG/DL (0.7-1.2) 03/06/17 08:13 Est GFR ( Amer) > 60 03/06/17 08:13 Est GFR (Non-Af Amer) > 60 03/06/17 08:13 Random Glucose 128 mg/dL (65-105) H 03/06/17 08:13 Calcium 8.7 mg/dl (8.6-10.4) 03/06/17 08:13 Total Bilirubin 0.5 mg/dL (0.2-1.3) 03/01/17 11:55 AST 30 U/L (14-36) 03/01/17 11:55 ALT 21 U/L (9-52) 03/01/17 11:55 Alkaline Phosphatase 80 U/L (38-126) 03/01/17 11:55 Total Protein 6.8 g/dL (6.3-8.3) 03/01/17 11:55 Albumin 3.3 g/dL (3.5-5.0) L 03/01/17 11:55 Globulin 3.5 gm/dL (2.2-3.9) 03/01/17 11:55 Albumin/Globulin Ratio 0.9 (1.0-2.1) L 03/01/17 11:55 Lipase 81 U/L (23-300) 02/27/17 18:58 Carcinoembryonic Ag 3.3 ng/mL (0-3.0) H 02/28/17 11:31 CA 19-9 Antigen < 1.4 U/mL (0-37) 02/28/17 11:31 CA 125 Antigen 7.1 U/mL (0-35) 02/28/17 11:31 Urine Color Yellow (YELLOW) 03/06/17 22:47 Urine Clarity Clear (Clear) 03/06/17 22:47 Urine pH 7.0 (5.0-8.0) 03/06/17 22:47 Ur Specific [place] 1.009 (1.003-1.030) 03/06/17 22:47 Urine Protein Negative mg/dL (NEGATIVE) 03/06/17 22:47 Urine Glucose (UA) Normal mg/dL (Normal) 03/06/17 22:47 Urine Ketones Negative mg/dL (NEGATIVE) 03/06/17 22:47 Urine Blood Negative (NEGATIVE) 03/06/17 22:47 Urine Nitrate Negative (NEGATIVE) 03/06/17 22:47 Urine Bilirubin Negative (NEGATIVE) 03/06/17 22:47 Urine Urobilinogen Normal mg/dL (0.2-1.0) 03/06/17 22:47 Ur Leukocyte Esterase Negative [place]/uL (Negative) 03/06/17 22:47 Urine WBC (Auto) 2 /hpf (0-5) 03/06/17 22:47 Urine RBC (Auto) < 1 /hpf (0-3) 03/06/17 22:47 Ur Squamous Epith Cells 5 /hpf (0-5) 03/06/17 22:47 Urine Bacteria Rare (<OCC) 03/06/17 22:47 - Hospital Course Hospital Course: Patient admitted with abdominal pain, diverticulitis, alert and orientedx3, denies any distress, tolerating diet, no vomiting. D/W DR Liang and DR Lira, plan to discharge home today on flagyl 500mg po q8h x5 days. Advised to follow up with PMD in 1 week. Discharge Exam - Head Exam Head Exam: ATRAUMATIC, NORMAL INSPECTION, NORMOCEPHALIC - Eye Exam Eye Exam: EOMI, Normal appearance, PERRL Pupil Exam: NORMAL ACCOMODATION, PERRL - Respiratory Exam Respiratory Exam: Clear to PA & Lateral, NORMAL BREATHING PATTERN - Cardiovascular Exam Cardiovascular Exam: REGULAR RHYTHM, +S1, +S2 - GI/Abdominal Exam GI & Abdominal Exam: Normal Bowel Sounds Discharge Plan - Discharge Medications Prescriptions: metroNIDAZOLE [Flagyl] 500 mg PO TID #15 tab - Follow Up Plan Condition: FAIR Disposition: HOME/ ROUTINE Instructions: Metronidazole (By mouth), Diverticulitis (DC), Diverticulitis Diet (DC) Referrals: Heraclio Liang MD [Staff Provider] -
--- NOTE | 2017-03-19 18:53 | CON ---
DATE: 02/27/2017 HISTORY OF PRESENT ILLNESS: I was called for GI consultation by the admitting medical team as well as the ER staff. The patient is seen and fully examined on 02/27/2017 as requested by the admitting MD. Entire chart is reviewed including, but not limited to the most recent lab and the radiologic study results, current and the previous medication list and current and previous medical events. I reviewed the medication list as well as all the available current and previous medical records. Case discussed with the staff at length at the time of my GI consultation on 02/27/2017. A short handwritten consultation sheet was placed in the chart due to the mechanical malfunction of the dictation system, for which this note is dictated now. This is a 76-year-old female well known case for me from previous hospital admission and office visits. The patient was admitted through the emergency room due to episodes of severe abdominal pain, recurrent diarrhea with discoloration of her fecal material, chills, generalized weakness, and . The patient was given p.o. antibiotic recently with slight response. It had to be mentioned that very recently the patient was admitted to [facility] with underlined diagnosis of acute diverticulitis with possible diverticular abscess formation, but she refused surgery at that time. PAST MEDICAL HISTORY: Including but not limited to: 1. Peptic ulcer disease. 2. Osteoarthritis. 3. Colon polyps. 4. Diverticulosis. 5. Recent episodes of acute diverticulitis with diverticular abscess formation. 6. Known history of hypertension with hyperlipidemia. 7. Status post appendectomy. 8. Status post diverticular abscess formation drainage, done under CAT scan in [facility] recently. FAMILY HISTORY: Unknown. SOCIAL HISTORY: No known history of cigarette smoking or alcohol intake. CURRENT MEDICATIONS: Medication list was reviewed. ALLERGIES: ALLERGIC TO MEDICATION UNCLEAR. LABORATORY DATA: After being admitted to hospital, the patient was found to have leukocytosis of 15.9 with low hemoglobin of 10.8, but normal SMA-7. PHYSICAL EXAMINATION GENERAL: A 76-year-old female awake, alert, and oriented. VITAL SIGNS: Afebrile as she had been on oral antibiotic as outpatient recently with a pulse of 74, respiratory rate 20-22, and blood pressure 136/66. HEENT: Showed dry, pale oral mucous membrane. Nonicteric sclerae. LYMPH NODES: No lymphadenitis or lymphadenopathy. LUNGS: Scattered crepitation with decreased air entry at bases. HEART: Positive S1 and S2. ABDOMEN: Soft with mild generalized tenderness especially in the midepigastric and left lower quadrant area. No mass or organomegaly. No rebound tenderness or guarding. RECTAL: vault is empty. EXTREMITIES: With mild lower extremity edematous changes. No clubbing or cyanosis. NEUROLOGIC: No reported neurological deficits, sensory, or motor. IMPRESSION: 1. Diverticulosis with acute diverticulitis. 2. Rule out reformation of diverticular abscess. 3. Anemia, most likely secondary to above. 4. Re-exacerbation of peptic ulcer disease. 5. Past medical history including, but not limited to osteoarthritis, hypertension, hyperlipidemia, as well as colon polyps. SUGGESTIONS: 1. Agree with your plan. 2. IV antibiotics. 3. Keep the patient n.p.o. until improved clinically. 4. Proton pump inhibitor. 5. Surgical consultation. 6. No aggressive GI workup in the meantime due to the patient's evidence of acute diverticulitis until she stable clinically. Thank you for letting me to participate in your patient's case management. Further recommendation and evaluation to follow. Marion Clarke MD
== END 2017-03-08 14:40 | disposition home or self-care (01) | DRG 690 ==
LOC: C.ER 17:26 → C.9E 22:46 → C.5T 02-28 16:56 → C.3T 03-02 07:08
PROVIDERS: ADMIT Internal Medicine; ATTEND Internal Medicine
DX: N39.0 Urinary tract infection, site not specified (principal); E86.0 Dehydration; E11.9 Type 2 diabetes mellitus without complications; K57.32 Diverticulitis of large intestine without perforation or abscess without bleeding; I10 Essential (primary) hypertension; D64.9 Anemia, unspecified; R97.0 Elevated carcinoembryonic antigen [CEA]; M19.90 Unspecified osteoarthritis, unspecified site; E78.00 Pure hypercholesterolemia, unspecified; Z86.010 Personal history of colon polyps; Z90.49 Acquired absence of other specified parts of digestive tract